=== PATIENT | male | born 1985 | race Caucasian/White ===

== ENCOUNTER 2018-11-15 16:30 | Emergency (ER) | payer OTHER ==
[~2018-11-15] VITALS: Ht 180.3 cm; Wt 85.0 kg
[2018-11-15 16:32] VITALS: Ht 180.3 cm; Wt 85.0 kg
[2018-11-15] MEDS ORDERED: KETOROLAC 30 MG INJ IM STA (17:16)
[2018-11-15] MEDS ORDERED: LIDOCAINE 2% (MDV) 20 ML INJ INJ STA (17:22)
[2018-11-15] MEDS ORDERED: DIPHTH/TET/ACEL PERTUSS (ADULT) 0.5 ML VIAL IM* ONE (17:30)
--- NOTE | 2018-11-15 17:54 | ERD ---
ER Documentation Chief Complaint Chief Complaint MECHANICAL TRIP AND FALL LAC TO LEFT EYEBROW HPI 33-year-old male with no reported past medical or surgical history who presents for evaluation of laceration to left eyebrow. States he was distressed after breaking up with his girlfriend. States he had about a pint of vodka clinically tripped and fell in his home. Landing on the floor sustaining laceration to the left eye brow ridge. He denies LOC or any other trauma or injury. Denies preceding dizziness or headache. Noticed a moderate amount of bleeding from the area of the laceration. At time of examination patient is alert and oriented x3 with no signs or symptoms of EtOH withdrawal. ROS All systems reviewed and are negative except as per history of present illness. Medications Home Meds Active Scripts Hydrocodone/Acetaminophen ([place] 5-325 Tablet) 1 Each Tablet, 1 TAB PO Q6H PRN f or PAIN, #20 TAB Prov:JOSSE LEPE PA-C 11/15/18 Allergies Allergies: Coded Allergies: No Known Allergy (Unverified , 11/15/18) PMhx/Soc Medical and Surgical Hx: pt denies Medical Hx, pt denies Surgical Hx Hx Alcohol Use: Yes (drank today) Hx Substance Use: Yes (HX Heroin use) Hx Tobacco Use: Yes Smoking Status: Current every day smoker FmHx Family History: No diabetes, No coronary disease, No other Physical Exam Vitals Physical Exam I have reviewed the triage vital signs. Const: Well nourished, well developed, appears stated age Eyes: PERRL, no conjunctival injection HENT: NCAT, Neck supple without meningismus, L eyebrow ridge with deep extending below subq layer, laceration approx 2 1/2 cm, able to blink without issue of affected eye,moving eye in all directions/planes post suture placement CV: RRR, Warm, well-perfused extremities RESP: CTAB, Unlabored respiratory effort GI: soft, non-tender, non-distended, no masses MSK: No gross deformities appreciated Skin: Warm, dry. No rashes Neuro: grossly non focal Psych: Appropriate mood and affect. Results 24 hrs Current Medications Medications Dose Sig/Vicki Start Time Status Last (Trade) Ordered Route PRN Stop Time Admin Dose Reason Admin Ketorolac 30 mg ONCE STAT 11/15/18 DC 11/15/18 Tromethamine IM 17:16 17:25 (Toradol) 11/15/18 17:20 Diphtheria/ 0.5 ml ONCE ONCE 11/15/18 DC 11/15/18 Tetanus/Acell IM* 17:30 17:26 Pertussis 11/15/18 17:31 (Adacel) Lidocaine 20 ml ONCE STAT 11/15/18 DC (Xylocaine INJ 17:22 2% (Mdv) 20 11/15/18 17:28 ml) Procedures/MDM 33-year-old male presents with laceration to left eyebrow bridge. Underwent routine repair utilizing typical suture technique. He tolerated procedure without any adverse events. Post laceration repair patient able to blink and move eyes in all appropriate planes. Laceration Repair by me: Anesthesia: 1% lidocaine locally Location: L eyebrow ridge Tendon/Joint/Nerves: No injury, lacrimal gland spared, no obvious nerve involvement, able to blink and lift eyebrow post procedure, no drooping of eyelid pre or post repair Foreign body: None detected after copious irrigation and exploration Technique: Simple Interrupted Sutures x 12 (2 subq sutures required) Complexity: 2 subcutaneous sutures Post Closure Length: 2 1/2 cm Patient's bleeding was easily controlled in the department and there is no indication of anemia. No evidence of compartment syndrome, neurologic injury, vascular injury, open joint, tendon laceration, or foreign body. Patient is appropriate for outpatient follow up. 48 hour wound check and neurovascular check. Scar minimization instructions given. DISPOSITION PLAN: We discussed follow up with the patient's primary care doctor within 24 to 48 hours. Patient counseled regarding my diagnostic impression and care plan. Prior to discharge all questions answered. Pt agrees with treatment plan and understands strict return precautions. Precautionary instructions provided including instructions to return to the ER if not improving or for any worsening or changing symptoms or concerns. Departure Condition: Stable JOSSE LEPE PA-C Nov 15, 2018 17:54
[2018-11-15] MEDS ORDERED: HYDR-4011 PO (20:17)
[2018-11-15 20:27] VITALS: BP 134/80; PULSE 75; RESP 20
== END 2018-11-15 20:29 | disposition home or self-care (01) ==
LOC: FTE 16:30
DX: S01.112A Laceration without foreign body of left eyelid and periocular area, initial encounter (principal); F17.210 Nicotine dependence, cigarettes, uncomplicated; W01.0XXA Fall on same level from slipping, tripping and stumbling without subsequent striking against object, initial encounter; Y92.9 Unspecified place or not applicable; Z23 Encounter for immunization
CPT/HCPCS: 12011; 70450; 90471; 90715; 96372; J1885; Z7502; Z7610